=== PATIENT | female | born 1965 | race Caucasian/White ===

== ENCOUNTER 2018-07-23 11:53 | Outpatient (CLI) | payer OTHER | END 2018-07-23 15:07 | disposition home or self-care (01) | LOC: RAD 11:53 | DX: R05 Cough (principal) ==

== ENCOUNTER → 2018-07-23 | Outpatient (CLI) | payer OTHER | END | disposition home or self-care (01) | LOC: LAB 11:19 | DX: J11.1 Influenza due to unidentified influenza virus with other respiratory manifestations (principal); J06.9 Acute upper respiratory infection, unspecified; R05 Cough ==

== ENCOUNTER 2019-02-01 09:31 | Outpatient (CLI) | payer OTHER | END 2019-02-01 09:52 | disposition home or self-care (01) | LOC: MRI 09:31 | DX: M54.5 Low back pain (principal); M54.16 Radiculopathy, lumbar region | CPT/HCPCS: 72148 ==

== ENCOUNTER → 2019-02-16 12:53 | Outpatient (CLI) | payer OTHER | END | disposition home or self-care (01) | LOC: LAB 12:53 | DX: D64.89 Other specified anemias (principal); D68.8 Other specified coagulation defects ==